=== PATIENT | female | born 1995 | race Caucasian/White ===

== ENCOUNTER 2017-03-06 03:30 | Emergency (ER) | payer OTHER ==
[~2017-03-06] VITALS: Ht 162.6 cm; Wt 63.5 kg
[2017-03-06 03:34] VITALS: BP 115/78
--- NOTE | 2017-03-06 03:34 | NUR ---
BIB [facility] TO ER BED 7
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
--- NOTE | 2017-03-06 03:54 | NUR ---
ER MD AT BEDSIDE, EVÁNGEL DONE
[2017-03-06 04:06] VITALS: BP 115/78
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
== END 2017-03-06 04:06 ==
LOC: MED 03:30
DX: Z02.89 Encounter for other administrative examinations (principal); Z72.89 Other problems related to lifestyle; J45.909 Unspecified asthma, uncomplicated; Z88.0 Allergy status to penicillin
CPT/HCPCS: 99283